=== PATIENT | female | born 1965 | race Caucasian/White ===

== ENCOUNTER 2019-10-06 09:52 | Emergency (ER) | payer BC ==
[~2019-10-06] VITALS: Ht 175.3 cm; Wt 83.9 kg
[2019-10-06 10:10] LABS: ABSOLUTE NEUTROPHILS 3.3 thou/uL (1.4-8.2); BASOPHILS 0.9 % (0.0-2.0); EOSINOPHILS 2.3 % (0.0-3.0); HEMOGLOBIN 14.4 gm/dL (12.0-15.0); MCH 29.4 pg (26.0-34.0); MCHC 32.7 g/dL (28.0-37.0); MONOCYTES 9.1 % (1.0-8.0); PLATELET COUNT 227 thou/uL (150-400); POLYS 52.7 % (36.0-66.0); RBC 4.89 mil/uL (4.20-5.00); RDW 13.7 % (10.5-14.5); WBC 6.2 thou/uL (4.0-11.0)
[2019-10-06] MEDS ORDERED: CELEXA 10 MG TA10 M1 PO (10:14)
[2019-10-06] MEDS ORDERED: MINIVELLE1 EAC1 TOP (10:15)
[2019-10-06] MEDS ORDERED: NEURONTIN300 MG PO (10:15)
[2019-10-06] MEDS ORDERED: PLAQUENIL200 MG PO (10:16)
[2019-10-06] MEDS ORDERED: MONTELUKAST SODI4 M1 PO (10:17)
[2019-10-06] MEDS ORDERED: MELOXICAM15 MG PO (10:17)
[2019-10-06] MEDS ORDERED: LORAZEPAM 1 MG T1 MG PO (10:17)
[2019-10-06 10:31] LABS: ANION GAP 5 mmol/L (7-16); BUN 20 mg/dL (7-18); CALCIUM 9.3 mg/dL (8.5-10.1); CHLORIDE 102 mmol/L (98-107); CO2 27 mmol/L (21-32); CREATININE 0.8 mg/dL (0.6-1.0); GLUCOSE 101 mg/dL (74-106); POTASSIUM 4.1 mmol/L (3.5-5.1); SODIUM 134 mmol/L (136-145)
[2019-10-06 10:41] LABS: ALBUMIN 4.3 g/dL (3.4-5.0); SGOT 17 U/L (15-37); SGPT 26 U/L (30-65); TOTAL BILIRUBIN 0.4 mg/dL (<0.1-1.0); TOTAL PROTEIN 7.4 g/dL (6.4-8.2); TROPONIN-I <0.06 ng/mL (<0.06)
[2019-10-06 13:35] VITALS: BP 113/77
--- NOTE | 2019-10-07 08:14 | EKG ---
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
--- NOTE | 2019-10-07 08:19 | EKG ---
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
== END 2019-10-06 13:36 | disposition home or self-care (01) ==
LOC: ER 09:52
PROVIDERS: Emergency Medicine
DX: R07.89 Other chest pain (principal); M32.9 Systemic lupus erythematosus, unspecified; Z91.040 Latex allergy status